=== PATIENT | male | born 1985 | race Caucasian/White ===

== ENCOUNTER 2018-04-15 17:10 | Inpatient (IN) ==
[2018-04-15 17:41] LABS: Basophils # 0.1 K/mcL (0.0-0.2); Basophils % 0.7 %; Eosinophils # 0.6 K/mcL (0.0-0.6); Eosinophils % 8.1 %; Hematocrit 37.9 % (37.5-50.1); Hemoglobin 13.3 g/dL (12.9-16.9); Immature Granulocytes % 0.1 % (0-4); Lymphocytes # 1.7 K/mcL (0.6-4.6); Lymphocytes % 24.3 %; Mean Corpuscular HGB Conc 35.1 g/dL (31.6-35.5); Mean Corpuscular Hemoglobin 29.9 pg (28.0-33.3); Mean Corpuscular Volume 85.2 fL (83.0-100.0); Monocytes # 0.5 K/mcL (0.0-1.3); Monocytes % 7.4 %; Neutrophils # 4.2 K/mcL (1.6-8.9); Platelet Count 277 K/mcL (140-400); Red Blood Count 4.45 M/mcL (4.19-5.50); Red Cell Distribution Width 12.3 % (11.5-14.5); Segmented Neutrophils % 59.4 %
[2018-04-15 18:04] LABS: Acetaminophen < 10 mcg/mL (10-20); Alanine Aminotransferase 51 Units/L (7-52); Albumin 4.5 g/dL (3.5-5.7); Albumin/Globulin Ratio 1.7 (1.1-2.2); Alkaline Phosphatase 83 Units/L (34-104); Aspartate Amino Transferase 30 Units/L (13-39); BUN/Creatinine Ratio 8 (6-26); Bilirubin,Direct 0.1 mg/dL (0.0-0.2); Bilirubin,Indirect 0.3 mg/dL (0.0-1.2); Bilirubin,Total 0.4 mg/dL (0.3-1.0); Blood Urea Nitrogen 8 mg/dL (6-20); Calcium 9.3 mg/dL (8.6-10.3); Carbon Dioxide 27 mEq/L (23-29); Chloride 104 mEq/L (98-107); Ethanol < 10 mg/dL (Less than 10); Globulin 2.7 g/dL (2.4-3.5); Glucose 112 mg/dL (70-105); Osmolality,Calculated 285 (280-300); Potassium 3.6 mEq/L (3.5-5.1); Salicylate < 2.5 mg/dL (15.0-30.0); Sodium 138 mEq/L (136-145); Total Protein 7.2 g/dL (6.4-8.9); eGFR For Non-African Americans > 60 (> 60)
[2018-04-15] MEDS ORDERED: Ziprasidone injection 20 MG/ML VIAL IM ONE (18:11)
[2018-04-15] MEDS ORDERED: *HR* LORazepam 2 MG/ML VIAL IM ONE (18:11)
[2018-04-15 18:16] LABS: Thyroid Stimulating Hormone 0.553 mcIU/mL (0.340-5.600)
[2018-04-15 18:25] LABS: Bilirubin,Urine Negative (Negative); Blood,Urine Moderate (Negative); Clarity,Urine Cloudy (Clear); Color,Urine Yellow (Yellow); Glucose,Urine (UA) Normal (Normal); Ketones,Urine Trace mg/dL (Negative); Leukocyte Esterase,Urine Small (Negative); Nitrite,Urine Negative (Negative); PH,Urine 6.5 pH Units (5.0-8.0); Protein,Urine Negative (Neg-Trace); Specific Gravity,Urine > 1.030 (1.010-1.025); Urobilinogen,Urine Normal (Normal)
[2018-04-15 18:26] LABS: Bacteria,Urine None Seen per hpf (None-Few); Squamous Epithelial Cell,Urine Many per lpf (None-Few); WBC,Urine 50-100 per hpf (0-3)
[2018-04-15 18:48] LABS: Amphetamine Screen,Urine Positive ng/mL (Cutoff=1000); Barbiturate Screen,Urine Negative ng/mL (Cutoff=200); Benzodiazepines Screen,Urine Negative ng/mL (Cutoff=200); Cannabinoid Screen,Urine Negative ng/mL (Cutoff = 50); Cocaine Screen,Urine Negative ng/mL (Cutoff= 300); Opiate Screen,Urine Negative ng/mL (Cutoff=300); Phencyclidine Screen,Urine Negative ng/mL (Cutoff=25)
--- NOTE | 2018-04-15 18:54 | Emergency Department Note ---
Disposition Clinical Impression: Acute psychosis Intoxication by drug Qualifiers: Complication of substance-induced condition: with delirium Qualified Code(s): F19.921 - Other psychoactive substance use, unspecified with intoxication with delirium Disposition: Admitted As Inpatient Condition: Fair Referrals: NONE,PCP [Primary Care Provider] - Forms: ED Satisfaction Letter Time of Disposition: 20:16 General Adult HPI - General Chief complaint: ED Psychiatric Symptoms Stated complaint: AMS Time Seen by Provider: 04/15/18 17:16 Source: patient Mode of arrival: ambulatory Limitations: altered mental status - History of Present Illness HPI Narrative: This is a 32-year-old male brought in by EMS because he was found at a discount store staring aimlessly off into space. He will not interact with EMS or with myself. Pain Scale: 4 - Related Data Allergies Allergy/AdvReac Type Severity Reaction Status Date / Time Unable to Assess Allergy Verified 04/15/18 18:22 Limitations: ROS unobtainable due to patients medical condition Past Medical History - Past Medical History Medical history: Reports: other - Social History Smoking Status: Unknown if ever smoked Physical Exam - General Limitations: other (Patient chooses not to communicate) General appearance: in no apparent distress - Head Head exam: atraumatic, normocephalic, normal inspection - Eye Eye exam: Present: normal appearance, PERRL, EOMI - Chest Chest inspection: Present: normal inspection, symmetric chest wall rise - Respiratory Respiratory exam: Present: normal lung sounds bilaterally - Cardiovascular Cardiovascular exam: Present: regular rate, normal rhythm, normal heart sounds - Abdominal Exam Abdominal exam: Present: soft, Non-Tender. Absent: tenderness, distention, guarding, rebound, rigidity - Extremities Exam Extremities exam: Present: normal inspection, full ROM. Absent: tenderness, pedal edema - Neurological Exam Neurological exam: Present: alert, CN II-XII intact. Absent: motor sensory deficit - Psychiatric Psychiatric exam: Present: normal affect, normal mood - Skin Skin exam: Present: warm, dry, intact, normal color Course Course Narrative: This is a 32-year-old male who appears to have a psychiatric problem. Vital Signs Temperature 100.2 F H 04/15/18 17:17 Pulse Rate 87 04/15/18 17:17 Respiratory Rate 18 04/15/18 17:17 Blood Pressure 163/118 04/15/18 17:17 O2 Sat by Pulse Oximetry 99 04/15/18 17:17 Temperature 98.7 F 04/15/18 18:03 Pulse Rate 107 04/15/18 19:17 Respiratory Rate 14 04/15/18 19:17 Blood Pressure 168/105 04/15/18 19:17 O2 Sat by Pulse Oximetry 98 04/15/18 19:17 Oxygen Delivery Oxygen Delivery Room Air Medical Decision Making - MDM Narrative Medical decision making narrative: This is a 32-year-old male who is either having a first episode of schizophrenia or has a drug-induced intoxication causing his behavior. He is not medically clear for psychiatric evaluation, and I discussed his case with the on-call hospitalist, who accepted him for observation. - Lab Data Lab results reviewed: Yes I reviewed the patient's lab results. Lab results narrative: CBC was unremarkable CMP was unremarkable TSH was normal UA shows white cells and red cells but no evidence of infection Drug screen was positive for amphetamines Result diagrams: 04/15/18 17:21 04/15/18 17:21 Lab Results 04/15/18 04/15/18 04/15/18 Range/Units 17:21 17:21 18:16 WBC 7.0 (4.3-11.1) K/mcL RBC 4.45 (4.19-5.50) M/mcL Hgb 13.3 (12.9-16.9) g/dL Hct 37.9 (37.5-50.1) % MCV 85.2 (83.0-100.0) fL MCH 29.9 (28.0-33.3) pg MCHC 35.1 (31.6-35.5) g/dL RDW 12.3 (11.5-14.5) % Plt Count 277 (140-400) K/mcL MPV 9.0 L (9.4-12.4) fL Immature Gran % 0.1 (0-4) % Seg Neutrophils % 59.4 % Lymphocytes % 24.3 % Monocytes % 7.4 % Eosinophils % 8.1 % Basophils % 0.7 % Neutrophils # 4.2 (1.6-8.9) K/mcL Lymphocytes # 1.7 (0.6-4.6) K/mcL Monocytes # 0.5 (0.0-1.3) K/mcL Eosinophils # 0.6 (0.0-0.6) K/mcL Basophils # 0.1 (0.0-0.2) K/mcL Sodium 138 (136-145) mEq/L Potassium 3.6 (3.5-5.1) mEq/L Chloride 104 (98-107) mEq/L Carbon Dioxide 27 (23-29) mEq/L BUN 8 (6-20) mg/dL Creatinine 0.99 (0.70-1.30) mg/dL Est GFR ( Amer) > 60 (> 60) Est GFR (Non-Af Amer) > 60 (> 60) BUN/Creatinine Ratio 8 (6-26) Glucose 112 H (70-105) mg/dL Calculated Osmolality 285 (280-300) Calcium 9.3 (8.6-10.3) mg/dL Total Bilirubin 0.4 (0.3-1.0) mg/dL Direct Bilirubin 0.1 (0.0-0.2) mg/dL Indirect Bilirubin 0.3 (0.0-1.2) mg/dL AST 30 (13-39) Units/L ALT 51 (7-52) Units/L Alkaline Phosphatase 83 (34-104) Units/L Serum Total Protein 7.2 (6.4-8.9) g/dL Albumin 4.5 (3.5-5.7) g/dL Globulin 2.7 (2.4-3.5) g/dL Albumin/Globulin Ratio 1.7 (1.1-2.2) TSH 0.553 (0.340-5.600) mcIU/mL Urine Color Yellow (Yellow) Urine Clarity Cloudy A (Clear) Urine pH 6.5 (5.0-8.0) pH Units Ur Specific [place] > 1.030 H (1.010-1.025) Urine Protein Negative (Neg-Trace) mg/dL Urine Glucose (UA) Normal (Normal) mg/dL Urine Ketones Trace H (Negative) mg/dL Urine Blood Moderate H (Negative) Urine Nitrite Negative (Negative) Urine Bilirubin Negative (Negative) Urine Urobilinogen Normal (Normal) mg/dL Ur Leukocyte Esterase Small H (Negative) Urine Microscopic RBC 5-15 H (0-3) per hpf Urine Microscopic WBC 50-100 H (0-3) per hpf Ur Squamous Epith Cells Many H (None-Few) per lpf Urine Bacteria None Seen (None-Few) per hpf Salicylates < 2.5 L (15.0-30.0) mg/dL Urine Opiates Screen (Mxutqe=247) ng/mL Acetaminophen < 10 L (10-20) mcg/mL Ur Barbiturates Screen (Oplhop=970) ng/mL Ur Phencyclidine Scrn (Cutoff=25) ng/mL Ur Amphetamines Screen (Gmgzbc=5819) ng/mL U Benzodiazepines Scrn (Hnlzvu=063) ng/mL Urine Cocaine Screen (Cutoff= 300) ng/mL U Marijuana (THC) Screen (Cutoff = 50) ng/mL Ur Drug Screen Interp Ethyl Alcohol < 10 (Less than 10) mg/dL 04/15/18 Range/Units 18:16 WBC (4.3-11.1) K/mcL RBC (4.19-5.50) M/mcL Hgb (12.9-16.9) g/dL Hct (37.5-50.1) % MCV (83.0-100.0) fL MCH (28.0-33.3) pg MCHC (31.6-35.5) g/dL RDW (11.5-14.5) % Plt Count (140-400) K/mcL MPV (9.4-12.4) fL Immature Gran % (0-4) % Seg Neutrophils % % Lymphocytes % % Monocytes % % Eosinophils % % Basophils % % Neutrophils # (1.6-8.9) K/mcL Lymphocytes # (0.6-4.6) K/mcL Monocytes # (0.0-1.3) K/mcL Eosinophils # (0.0-0.6) K/mcL Basophils # (0.0-0.2) K/mcL Sodium (136-145) mEq/L Potassium (3.5-5.1) mEq/L Chloride (98-107) mEq/L Carbon Dioxide (23-29) mEq/L BUN (6-20) mg/dL Creatinine (0.70-1.30) mg/dL Est GFR ( Amer) (> 60) Est GFR (Non-Af Amer) (> 60) BUN/Creatinine Ratio (6-26) Glucose (70-105) mg/dL Calculated Osmolality (280-300) Calcium (8.6-10.3) mg/dL Total Bilirubin (0.3-1.0) mg/dL Direct Bilirubin (0.0-0.2) mg/dL Indirect Bilirubin (0.0-1.2) mg/dL AST (13-39) Units/L ALT (7-52) Units/L Alkaline Phosphatase (34-104) Units/L Serum Total Protein (6.4-8.9) g/dL Albumin (3.5-5.7) g/dL Globulin (2.4-3.5) g/dL Albumin/Globulin Ratio (1.1-2.2) TSH (0.340-5.600) mcIU/mL Urine Color (Yellow) Urine Clarity (Clear) Urine pH (5.0-8.0) pH Units Ur Specific [place] (1.010-1.025) Urine Protein (Neg-Trace) mg/dL Urine Glucose (UA) (Normal) mg/dL Urine Ketones (Negative) mg/dL Urine Blood (Negative) Urine Nitrite (Negative) Urine Bilirubin (Negative) Urine Urobilinogen (Normal) mg/dL Ur Leukocyte Esterase (Negative) Urine Microscopic RBC (0-3) per hpf Urine Microscopic WBC (0-3) per hpf Ur Squamous Epith Cells (None-Few) per lpf Urine Bacteria (None-Few) per hpf Salicylates (15.0-30.0) mg/dL Urine Opiates Screen Negative (Bqtvcb=463) ng/mL Acetaminophen (10-20) mcg/mL Ur Barbiturates Screen Negative (Tcjuub=621) ng/mL Ur Phencyclidine Scrn Negative (Cutoff=25) ng/mL Ur Amphetamines Screen Positive H (Xzrhsx=3911) ng/mL U Benzodiazepines Scrn Negative (Iafxwx=055) ng/mL Urine Cocaine Screen Negative (Cutoff= 300) ng/mL U Marijuana (THC) Screen Negative (Cutoff = 50) ng/mL Ur Drug Screen Interp See Below Ethyl Alcohol (Less than 10) mg/dL - Radiology Data Radiology results reviewed: Yes I reviewed the patient's radiology results. CT brain showed no acute abnormality Critical Care Time Critical Care Time: No
[2018-04-15] MEDS ORDERED: Ringers Solution, Lactated 1,000 ML IVC SCH (20:30)
--- NOTE | 2018-04-15 22:14 | Internal Med History&Physical ---
Date of Encounter: 04/15/18 Time of Encounter: 22:12 Internal Medicine - H&P: HPI Chief complaint: AMS Admitted From: Home Plans for Post Hospital Care: Home History of present illness: Joey Cortes is a 32-year-old male done unknown past medical history was brought in by EMS because he was found that a discount store staring aimlessly off into space and did not interact with EMS or with ER staff therefore information is obtained from chart review. It is believed he may be having a psychotic disorder. His labs are grossly unremarkable and head CT non-revealing however his UDS was revealing of amphetamines therefore he was not cleared medically. He will be observed overnight and obtain psychiatric evaluation in the morning. On my assessment he is lying in bed with his eyes closed and does not respond though his eyes flicker when spoken to and when touched. In traction was elicited when the pain nurse attempted to put in a Mac catheter at which time he grabbed his genitals and said no and cooperated with obtaining urine for sampling. Past Med Surg Social Fam HX - Past Medical History Medical history: other Additional medical history: Patient not responding - Social History Smoking Status: Unknown if ever smoked Internal Medicine - H&P: Meds Allergy/AdvReac Type Severity Reaction Status Date / Time Unable to Assess Allergy Verified 04/15/18 18:22 All Systems PM: A 10-system review of systems was performed and is negative for pertinent findings except as documented above in the HPI. Family history unable to be obtained due to non-cooperative state. - Constitutional Vitals: Temp Pulse Resp BP Pulse Ox 98.9 F 112 6 162/110 97 04/15/18 21:10 04/15/18 21:51 04/15/18 21:51 04/15/18 21:10 04/15/18 22:02 Exam: Vitals: Reviewed General: Well developed white male lying comfortably in bed in no acute distress. Skin: Warm and supple. HEENT: Moist mucous membranes. No conjunctivae pallor. Neck: No lymphadenopathy. No JVD. No carotid bruits. No palpable thyroid. Chest: Normal thoracic expansion. Normal breath sounds. Clear to auscultation. Heart: Normal S1 & S2; rhythmic. No rubs or murmurs. Abdomen: Non-distended, soft and non-tender to palpation. No peritoneal reaction. Extremities: No clubbing, cyanosis or edema. No calf tenderness. Normal distal pulses. Neurological: Unable to assess. Psych: Unable to assess. Internal Med - H&P Results - Labs CBC & Chem 7: 04/15/18 17:21 04/15/18 17:21 Labs: Short CBC 04/15/18 Range/Units 17:21 WBC 7.0 (4.3-11.1) K/mcL Hgb 13.3 (12.9-16.9) g/dL Hct 37.9 (37.5-50.1) % Plt Count 277 (140-400) K/mcL Neutrophils # 4.2 (1.6-8.9) K/mcL BMP 04/15/18 17:21 Sodium 138 Potassium 3.6 Chloride 104 Carbon Dioxide 27 BUN 8 Creatinine 0.99 Glucose 112 H Calcium 9.3 Liver Function 04/15/18 Range/Units 17:21 Total Bilirubin 0.4 (0.3-1.0) mg/dL Direct Bilirubin 0.1 (0.0-0.2) mg/dL AST 30 (13-39) Units/L ALT 51 (7-52) Units/L Alkaline Phosphatase 83 (34-104) Units/L Albumin 4.5 (3.5-5.7) g/dL Urine 04/15/18 Range/Units 18:16 Urine Color Yellow (Yellow) Urine Clarity Cloudy A (Clear) Urine pH 6.5 (5.0-8.0) pH Units Ur Specific [place] > 1.030 H (1.010-1.025) Urine Protein Negative (Neg-Trace) mg/dL Urine Glucose (UA) Normal (Normal) mg/dL - Impressions ITS Impressions Head CT 04/15/18 17:21 IMPRESSION: Limited exam due to motion. Multifocal low-density in the right hemisphere. Motion related artifact is favored over ischemic changes No acute abnormality otherwise D/ / Igor Vogt / Igor Vogt Interpreting Provider: Igor Vogt - Assessment and plan (1) Acute encephalopathy Current Visit: Yes Status: Acute Assessment and plan: Non-verbal. Appears psychiatric in etiology. No known history and patient not cooperating, seemingly intentionally. Head CT and labs unremarkable. Will observe overnight and consult psych in the morning once cleared. (2) Intoxication by drug Current Visit: Yes Status: Acute Assessment and plan: Amphetamines seen in urine. Currently not in a hyperactive state. Will give fluids overnight and close observation. 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 Qualifiers: Complication of substance-induced condition: with unspecified complication Qualified Code(s): F19.929 - Other psychoactive substance use, unspecified with intoxication, unspecified (3) DVT prophylaxis Current Visit: Yes Status: Acute Assessment and plan: Heparin SubQ. - Time Spent With Patient Total time spent is greater than 50% in coordination of care (as documented) at patient's floor/unit and/or counseling patient: Greater than 35 minutes
[2018-04-16] MEDS: *HR* Heparin 5,000 UNIT/ML VIAL SQ SCH ×2 (06:03→16:19)
--- NOTE | 2018-04-16 09:00 | Internal Med Progress Note ---
<Ashlie Narayanan - Last Filed: 04/16/18 08:57> Hospitalist Progress Note - Encounter Date of Encounter: 04/16/18 Time of Encounter: 08:57 - Subjective Interval History: Patient does not answer questions, although eyes flutter behind eyelids during exam. He did open his eyes squinting to look in to the hallway before closing them again. Also opened and closed mouth, but did not speak. - Exam Vitals: Temp Pulse Resp BP Pulse Ox 98.6 F 101 13 168/109 98 04/16/18 07:37 04/16/18 07:37 04/16/18 07:37 04/16/18 07:37 04/16/18 07:37 Exam: General: alert, no acute distress HEENT: atraumatic, normocephalic, external ears normal, PEERLA EOMI, neck supple, trachea midline Heart: RRR Lungs: CTA Abdomen: soft, nontender, bowel sounds present Extremities: no edema Vascular: posterior tibial pulses 2/4 and equal Skin: warm, dry, intact Neuro: does not answer commands/questions. Did open eyes and look in to morse and open and close mouth. Musculoskeletal: Moving upper extremities spontaneously. Psych: not cooperating with questioning - Assessment and Plan (1) Acute psychosis Current Visit: Yes Status: Acute Assessment and Plan: Patient was brought in by EMS after being found at a discount score staring in to space. He has not responded to any medical profession (EMS, ER physician, admitting hospitalist, myself) He did withdraw from pain and respond when a nurse attempted to place a Mac catheter, grabbing his genitals and saying "no." He then cooperated with obtaining urine sample. This morning he is unresponsive to my commands/questions but is moving his upper extremities, opening/closing mouth, and opening his eyes and looked into the hallway for a moment. Psych consulted (2) Positive urine drug screen Current Visit: Yes Status: Acute Assessment and Plan: UDS positive for amphetamines patient is currently hypoactive, not hyperactive DVT Prophylaxis: heparin SQ - Time Spent with Patient Total time spent is greater than 50% in coordination of care (as documented) at patient's floor/unit and/or counseling patient: Internal Medicine: Result - Labs CBC & Chem 7: 04/15/18 17:21 04/15/18 17:21 Labs: Short CBC 04/15/18 Range/Units 17:21 WBC 7.0 (4.3-11.1) K/mcL Hgb 13.3 (12.9-16.9) g/dL Hct 37.9 (37.5-50.1) % Plt Count 277 (140-400) K/mcL Neutrophils # 4.2 (1.6-8.9) K/mcL BMP 04/15/18 17:21 Sodium 138 Potassium 3.6 Chloride 104 Carbon Dioxide 27 BUN 8 Creatinine 0.99 Glucose 112 H Calcium 9.3 Liver Function 04/15/18 Range/Units 17:21 Total Bilirubin 0.4 (0.3-1.0) mg/dL Direct Bilirubin 0.1 (0.0-0.2) mg/dL AST 30 (13-39) Units/L ALT 51 (7-52) Units/L Alkaline Phosphatase 83 (34-104) Units/L Albumin 4.5 (3.5-5.7) g/dL Urine 04/15/18 Range/Units 18:16 Urine Color Yellow (Yellow) Urine Clarity Cloudy A (Clear) Urine pH 6.5 (5.0-8.0) pH Units Ur Specific [place] > 1.030 H (1.010-1.025) Urine Protein Negative (Neg-Trace) mg/dL Urine Glucose (UA) Normal (Normal) mg/dL - Impressions Impressions Head CT 04/15/18 17:21 IMPRESSION: Limited exam due to motion. Multifocal low-density in the right hemisphere. Motion related artifact is favored over ischemic changes No acute abnormality otherwise D/ / Igor oVgt / Igor Vogt Interpreting Provider: Igor Vogt Consult Discharge Plan - Plan Referrals: NONE,PCP [Primary Care Provider] - <Bijan Hartman - Last Filed: 04/16/18 12:17> Hospitalist Progress Note - Encounter Date of Encounter: 04/16/18 - Exam Vitals: Temp Pulse Resp BP Pulse Ox 99.3 F 105 16 157/106 100 04/16/18 11:45 04/16/18 11:45 04/16/18 11:45 04/16/18 11:45 04/16/18 11:45 - Assessment and Plan (1) Intoxication by drug Current Visit: Yes Status: Acute (2) Acute encephalopathy Current Visit: Yes Status: Acute (3) DVT prophylaxis Current Visit: Yes Status: Acute - Time Spent with Patient Total time spent is greater than 50% in coordination of care (as documented) at patient's floor/unit and/or counseling patient: Internal Medicine: Result - Labs CBC & Chem 7: 04/15/18 17:21 04/15/18 17:21 Labs: Short CBC 04/15/18 Range/Units 17:21 WBC 7.0 (4.3-11.1) K/mcL Hgb 13.3 (12.9-16.9) g/dL Hct 37.9 (37.5-50.1) % Plt Count 277 (140-400) K/mcL Neutrophils # 4.2 (1.6-8.9) K/mcL BMP 04/15/18 17:21 Sodium 138 Potassium 3.6 Chloride 104 Carbon Dioxide 27 BUN 8 Creatinine 0.99 Glucose 112 H Calcium 9.3 Liver Function 04/15/18 Range/Units 17:21 Total Bilirubin 0.4 (0.3-1.0) mg/dL Direct Bilirubin 0.1 (0.0-0.2) mg/dL AST 30 (13-39) Units/L ALT 51 (7-52) Units/L Alkaline Phosphatase 83 (34-104) Units/L Albumin 4.5 (3.5-5.7) g/dL Urine 04/15/18 Range/Units 18:16 Urine Color Yellow (Yellow) Urine Clarity Cloudy A (Clear) Urine pH 6.5 (5.0-8.0) pH Units Ur Specific [place] > 1.030 H (1.010-1.025) Urine Protein Negative (Neg-Trace) mg/dL Urine Glucose (UA) Normal (Normal) mg/dL - Impressions Impressions Head CT 04/15/18 17:21 IMPRESSION: Limited exam due to motion. Multifocal low-density in the right hemisphere. Motion related artifact is favored over ischemic changes No acute abnormality otherwise D/ / Igor Vogt / Igor Vogt Interpreting Provider: Igor Vogt - Attending Attestation I examined this patient and my medical decision-making was reviewed with the Resident Physician Dr. Narayanan. I agree with the documented findings, disposition and treatment plan as described except to the extent set forth below. Mr. Cortes is a 32 y/o M with unknown psychiatric history who was brought in to ER by EMS after he was found staring into space at a local convenience store. In the emergency room his labs are grossly unremarkable and head CT non- revealing. His UDS showed amphetamines. Patient is still having flat affect, not communicating verbally and unable to give any history. Gen: Flat effect, Delusions Chest: CTAB Heart: S1S2+ RRR No murmurs a/p 1. Acute psychosis 2. Underline psychiatric disease - possible schizophrenia 3. Substance abuse cont on tele continue close monitoring appreciate psychiatric recommendations placed him on Haldol 5 mg oral Q6hr PRN <Bijan Hartman - Last Filed: 04/16/18 12:17> (1) Intoxication by drug Qualifiers: Complication of substance-induced condition: with unspecified complication Qualified Code(s): F19.929 - Other psychoactive substance use, unspecified with intoxication, unspecified
--- NOTE | 2018-04-16 10:41 | Consult Note ---
Date of Encounter: 04/16/18 Time of Encounter: 10:36 Assessment & Recommendation (1) Substance-induced psychotic disorder Current visit: Yes Status: Acute Assessment & Recommendation: Suspect presentation is due to methamphetamine induced psychosis but cannot say for sure with client refusing to cooperate and no medical history available. Recommend giving low dose Haldol to see if it helps him clear. Can give 5mg IV q6-8hr prn if he refuses PO but would keep him on telemetry when doing so. Can use Benadryl or Cogentin if he has any dystonia or other signs of EPS from the Haldol. Any collateral information from family/old medical records would be helpful until he can more meaningfully participate in an assessment. History of Present Illness Requesting Physician: Sidra Tavera MD Reason for consult: altered mental status History of present illness: Mr. Cortes is a 32 year old male who was brought in by EMS after he was found staring vacantly at a store. Since being admitted he has not cooperated with any assessments. He has withdrawn to pain but has not otherwise answered questions or engaged with staff. On eval today he is laying in bed with his eyes closed. Never opened his eyes when this plunger shovel operator was in the room and did not answer any questions. However, he did not appear to be asleep. Seemed to be deliberately not engaging. Female patient across the morse motioned this play writer over and stated client had recently been awake and screaming. Claims he was yelling nonsense and praying loudly just before this play writer came up. Tox screen positive for meth. Mental health history is unknown. No real information on client at this time. CC: Sidra Tavera MD Past Med Surg Social Fam HX - Past Medical History Medical history: other - Past Psychiatric History Psychiatric history: Reports: other Family psychiatric history: Unknown Family History of Suicide: Unknown - Social History Smoking Status: Unknown if ever smoked Medications & Allergies Buprenorphine HCl/Naloxone HCl [Suboxone 8 mg-2 mg Sl Film] 1 each SL BID 04/16/18 [History] Gabapentin [Neurontin] 600 mg PO TID 04/16/18 [History] Allergy/AdvReac Type Severity Reaction Status Date / Time Unable to Assess Allergy Verified 04/15/18 18:22 Review of Systems Constitutional: Denies: fever, chills, weakness, weight change Eyes: Denies: eye pain, vision change Ears, Nose, Throat: Denies: ear pain, throat pain, dental pain, hearing loss, congestion Cardiovascular: Denies: chest pain, palpitations, dyspnea on exertion Respiratory: Denies: cough, dyspnea, wheezes Gastrointestinal: Denies: abdominal pain, nausea, vomiting, diarrhea, constipation Genitourinary male: Denies: urgency, dysuria, frequency, genital lesions Musculoskeletal: Denies: joint swelling, joint pain Integumentary: Denies: rash, lesions, pruritus Neurological: Denies: headache, weakness, numbness, memory loss Endocrine: Denies: fatigue, heat or cold intolerance Hematologic/Lymphatic: Denies: easy bruising, lymphadenopathy Allergic/Immunologic: Denies: urticaria, itchy eyes Psychiatry Exam - Constitutional Vitals: Temp Pulse Resp BP Pulse Ox 98.6 F 101 13 168/109 98 04/16/18 07:37 04/16/18 07:37 04/16/18 07:37 04/16/18 07:37 04/16/18 07:37 General appearance: age & developmentally appropriate - Musculoskeletal Gait: other Station: relaxed Strength & Tone: other - Psychiatric Patient Orientation: Yes Other Level of alertness: Responds to painful stimuli Behavior: uncooperative Psychomotor activity: Slowed Eye Contact: No Eye Contact Mood Description: Other Affect description: blunted Speech Volume: No speech Speech pattern: other Language & Vocabulary: other Patient Reliability: Not Reliable Historian Judgment: Poor Insight: None Results - Drug Levels and Toxicology Drug Levels and Toxicology: Drug Levels and Toxicity 04/15/18 04/15/18 17:21 18:16 Urine Opiates Screen Negative Acetaminophen < 10 L Ur Barbiturates Screen Negative Ur Phencyclidine Scrn Negative Ur Amphetamines Screen Positive H U Benzodiazepines Scrn Negative Urine Cocaine Screen Negative U Marijuana (THC) Screen Negative Ethyl Alcohol < 10 - Labs Labs: Laboratory Last Values WBC 7.0 K/mcL (4.3-11.1) 04/15/18 17:21 RBC 4.45 M/mcL (4.19-5.50) 04/15/18 17:21 Hgb 13.3 g/dL (12.9-16.9) 04/15/18 17:21 Hct 37.9 % (37.5-50.1) 04/15/18 17:21 MCV 85.2 fL (83.0-100.0) 04/15/18 17:21 MCH 29.9 pg (28.0-33.3) 04/15/18 17:21 MCHC 35.1 g/dL (31.6-35.5) 04/15/18 17:21 RDW 12.3 % (11.5-14.5) 04/15/18 17:21 Plt Count 277 K/mcL (140-400) 04/15/18 17:21 MPV 9.0 fL (9.4-12.4) L 04/15/18 17:21 Immature Gran % 0.1 % (0-4) 04/15/18 17:21 Seg Neutrophils % 59.4 % 04/15/18 17:21 Lymphocytes % 24.3 % 04/15/18 17:21 Monocytes % 7.4 % 04/15/18 17:21 Eosinophils % 8.1 % 04/15/18 17:21 Basophils % 0.7 % 04/15/18 17:21 Neutrophils # 4.2 K/mcL (1.6-8.9) 04/15/18 17:21 Lymphocytes # 1.7 K/mcL (0.6-4.6) 04/15/18 17:21 Monocytes # 0.5 K/mcL (0.0-1.3) 04/15/18 17:21 Eosinophils # 0.6 K/mcL (0.0-0.6) 04/15/18 17:21 Basophils # 0.1 K/mcL (0.0-0.2) 04/15/18 17:21 Sodium 138 mEq/L (136-145) 04/15/18 17:21 Potassium 3.6 mEq/L (3.5-5.1) 04/15/18 17:21 Chloride 104 mEq/L (98-107) 04/15/18 17:21 Carbon Dioxide 27 mEq/L (23-29) 04/15/18 17:21 BUN 8 mg/dL (6-20) 04/15/18 17:21 Creatinine 0.99 mg/dL (0.70-1.30) 04/15/18 17:21 Est GFR ( Amer) > 60 (> 60) 04/15/18 17:21 Est GFR (Non-Af Amer) > 60 (> 60) 04/15/18 17:21 BUN/Creatinine Ratio 8 (6-26) 04/15/18 17:21 Glucose 112 mg/dL (70-105) H 04/15/18 17:21 Calculated Osmolality 285 (280-300) 04/15/18 17:21 Calcium 9.3 mg/dL (8.6-10.3) 04/15/18 17:21 Total Bilirubin 0.4 mg/dL (0.3-1.0) 04/15/18 17:21 Direct Bilirubin 0.1 mg/dL (0.0-0.2) 04/15/18 17:21 Indirect Bilirubin 0.3 mg/dL (0.0-1.2) 04/15/18 17:21 AST 30 Units/L (13-39) 04/15/18 17:21 ALT 51 Units/L (7-52) 04/15/18 17:21 Alkaline Phosphatase 83 Units/L (34-104) 04/15/18 17:21 Serum Total Protein 7.2 g/dL (6.4-8.9) 04/15/18 17:21 Albumin 4.5 g/dL (3.5-5.7) 04/15/18 17:21 Globulin 2.7 g/dL (2.4-3.5) 04/15/18 17:21 Albumin/Globulin Ratio 1.7 (1.1-2.2) 04/15/18 17:21 TSH 0.553 mcIU/mL (0.340-5.600) 04/15/18 17:21 Urine Color Yellow (Yellow) 04/15/18 18:16 Urine Clarity Cloudy (Clear) A 04/15/18 18:16 Urine pH 6.5 pH Units (5.0-8.0) 04/15/18 18:16 Ur Specific [place] > 1.030 (1.010-1.025) H 04/15/18 18:16 Urine Protein Negative mg/dL (Neg-Trace) 04/15/18 18:16 Urine Glucose (UA) Normal mg/dL (Normal) 04/15/18 18:16 Urine Ketones Trace mg/dL (Negative) H 04/15/18 18:16 Urine Blood Moderate (Negative) H 04/15/18 18:16 Urine Nitrite Negative (Negative) 04/15/18 18:16 Urine Bilirubin Negative (Negative) 04/15/18 18:16 Urine Urobilinogen Normal mg/dL (Normal) 04/15/18 18:16 Ur Leukocyte Esterase Small (Negative) H 04/15/18 18:16 Urine Microscopic RBC 5-15 per hpf (0-3) H 04/15/18 18:16 Urine Microscopic WBC 50-100 per hpf (0-3) H 04/15/18 18:16 Ur Squamous Epith Cells Many per lpf (None-Few) H 04/15/18 18:16 Urine Bacteria None Seen per hpf (None-Few) 04/15/18 18:16 Salicylates < 2.5 mg/dL (15.0-30.0) L 04/15/18 17:21 Urine Opiates Screen Negative ng/mL (Fublub=820) 04/15/18 18:16 Acetaminophen < 10 mcg/mL (10-20) L 04/15/18 17:21 Ur Barbiturates Screen Negative ng/mL (Qmsatw=600) 04/15/18 18:16 Ur Phencyclidine Scrn Negative ng/mL (Cutoff=25) 04/15/18 18:16 Ur Amphetamines Screen Positive ng/mL (Lmdasq=4660) H 04/15/18 18:16 U Benzodiazepines Scrn Negative ng/mL (Yupoht=330) 04/15/18 18:16 Urine Cocaine Screen Negative ng/mL (Cutoff= 300) 04/15/18 18:16 U Marijuana (THC) Screen Negative ng/mL (Cutoff = 50) 04/15/18 18:16 Ur Drug Screen Interp See Below 04/15/18 18:16 Ethyl Alcohol < 10 mg/dL (Less than 10) 04/15/18 17:21 - Impressions Impressions Head CT 04/15/18 17:21 IMPRESSION: Limited exam due to motion. Multifocal low-density in the right hemisphere. Motion related artifact is favored over ischemic changes No acute abnormality otherwise D/ / Igor Vogt / Igor Vogt Interpreting Provider: Igor Vogt Consult Discharge Plan - Plan Referrals: NONE,PCP [Primary Care Provider] -
[2018-04-16] MEDS: Gabapentin 300 MG CAPSULE PO SCH ×2 (16:17→21:25)
[2018-04-16] MEDS: (Buprenorphine Hcl/Naloxone Hcl [Suboxone 8 Mg-2 Mg S SL SCH (21:25)
[2018-04-17] MEDS: *HR* Heparin 5,000 UNIT/ML VIAL SQ SCH ×2 (07:17→17:31)
--- NOTE | 2018-04-17 08:11 | Internal Med Progress Note ---
<Ashlie Narayanan - Last Filed: 04/17/18 08:23> Hospitalist Progress Note - Encounter Date of Encounter: 04/17/18 Time of Encounter: 08:11 - Subjective Interval History: States he hurts all over, this is not new pain, but chronic. He did not know why he is currently in the hospital. He would like his son, mother, and father to be called - he said that he could write down their names and phone numbers so we can contact them. He did not answer the following questions: -Do you have any chronic medical conditions? -Do you take any medicine taily? -Any ROS questions asked other than stated above - Exam Vitals: Temp Pulse Resp BP Pulse Ox 98.1 F 84 14 129/86 99 04/17/18 03:41 04/17/18 03:41 04/17/18 03:41 04/17/18 03:41 04/17/18 03:41 Exam: General: alert, no acute distress HEENT: atraumatic, normocephalic, external ears normal, neck supple, trachea midline Heart: RRR Lungs: CTA Abdomen: soft, nontender, bowel sounds present Extremities: no edema Vascular: posterior tibial pulses 2/4 and equal Skin: warm, dry, intact Neuro: Opens eyes and squints when light is turned on, then closes eyes and turned away from light. Musculoskeletal: Moving upper extremities spontaneously. Psych: slowed psychomotor activity, speech present to (most) questions asked, but delayed - Assessment and Plan (1) Acute psychosis Current Visit: Yes Status: Acute Assessment and Plan: Joey opened his eyes and squinted when the light was turned on, then turned his head and had his eyes closed for the remainder of the encounter. He is answering questions today, but his response is very delayed. Psychiatry consulted, appreciate input. --Recommendations for haldol po; if given IV he will need continous telemetry. He has not had any doses of haldol due to 1) will not take po medication and 2) not cooperative with keeping telemetry on. Mental status is improving giving more weight to the hypothesis that this is drug intoxication induced (2) Positive urine drug screen Current Visit: Yes Status: Acute Assessment and Plan: UDS positive for amphetamines in ER - Time Spent with Patient Total time spent is greater than 50% in coordination of care (as documented) at patient's floor/unit and/or counseling patient: Internal Medicine: Result - Labs CBC & Chem 7: 04/15/18 17:21 04/15/18 17:21 Consult Discharge Plan - Plan Referrals: NONE,PCP [Primary Care Provider] - <Bijan Hartman - Last Filed: 04/17/18 11:02> Hospitalist Progress Note - Encounter Date of Encounter: 04/17/18 - Exam Vitals: Temp Pulse Resp BP Pulse Ox 98.1 F 84 14 129/86 99 04/17/18 03:41 04/17/18 03:41 04/17/18 03:41 04/17/18 03:41 04/17/18 03:41 - Assessment and Plan (1) Intoxication by drug Current Visit: Yes Status: Acute (2) Acute encephalopathy Current Visit: Yes Status: Acute (3) DVT prophylaxis Current Visit: Yes Status: Acute - Time Spent with Patient Total time spent is greater than 50% in coordination of care (as documented) at patient's floor/unit and/or counseling patient: Internal Medicine: Result - Labs CBC & Chem 7: 04/15/18 17:21 04/15/18 17:21 - Attending Attestation I examined this patient and my medical decision-making was reviewed with the Res ident Physician Dr. Narayanan. I agree with the documented findings, disposition and treatment plan as described except to the extent set forth below. Mr. Cortes is a 32 y/o M with unknown psychiatric history who was brought in to ER by EMS after he was found staring into space at a local convenience store. In the emergency room his labs are grossly unremarkable and head CT non- revealing. His UDS showed amphetamines. Patient is still having flat affect, h owever able to communicate verbally little better today. He is ambulating in the room well. Gen: Flat effect, Delusions Chest: CTAB Heart: S1S2+ RRR No murmurs a/p 1. Acute psychosis 2. Underline psychiatric disease - possible schizophrenia 3. Substance abuse cont on tele continue close monitoring appreciate psychiatric recommendations Cont on Haldol 5 mg oral Q6hr PRN Will talk to Psychiatrist about further plan of care since pt is medically stable to d/c <Bijan Hartman - Last Filed: 04/17/18 11:02> (1) Intoxication by drug Qualifiers: Complication of substance-induced condition: with unspecified complication Qualified Code(s): F19.929 - Other psychoactive substance use, unspecified with intoxication, unspecified
[2018-04-17] MEDS: Gabapentin 300 MG CAPSULE PO SCH ×3 (08:52→20:18)
[2018-04-17] MEDS: (Buprenorphine Hcl/Naloxone Hcl [Suboxone 8 Mg-2 Mg S SL SCH ×2 (08:52→20:18)
[2018-04-18] MEDS ORDERED: Ondansetron ODT 4 MG TAB.RAPDIS SL ONE (00:22)
[2018-04-18] MEDS: *HR* Heparin 5,000 UNIT/ML VIAL SQ SCH ×2 (06:12→18:49)
[2018-04-18] MEDS: Gabapentin 300 MG CAPSULE PO SCH ×3 (10:12→21:00)
[2018-04-18] MEDS: (Buprenorphine Hcl/Naloxone Hcl [Suboxone 8 Mg-2 Mg S SL SCH ×2 (10:13→21:00)
--- NOTE | 2018-04-18 13:46 | Internal Med Progress Note ---
Hospitalist Progress Note - Encounter Date of Encounter: 04/18/18 Time of Encounter: 13:43 - Subjective Interval History: Mr. Cortes is a 32 y/o M with unknown psychiatric history who was brought in to ER by EMS after he was found staring into space at a local convenience store. In the emergency room his labs are grossly unremarkable and head CT non- revealing. His UDS showed amphetamines. Patient is still having flat affect, however able to communicate verbally little better today. He is ambulating in the room well. - Exam Vitals: Temp Pulse Resp BP Pulse Ox 97.6 F 101 16 133/89 99 04/18/18 04:01 04/18/18 04:01 04/18/18 04:01 04/18/18 04:01 04/18/18 04:01 Exam: Gen: Alert, awake, Oriented to time,place and person Chest: Diminished breath sounds B/L, No wheezing, No crackles, No rales Heart: S1S2+ RRR No murmurs Abd: Soft, NT, BS +, No organomegaly Ext: No edema, pulses are palpable, No calf tenderness Psych: Flat affect, Delusions + Skin: No rash. - Assessment and Plan (1) Acute psychosis Current Visit: Yes Status: Acute Assessment and Plan: concerning for underline psychiatric problem - possible schizophrenia Medically doing better Waiting for psychiatric evaluation. (2) Intoxication by drug Current Visit: Yes Status: Acute Assessment and Plan: Amphetamines seen in urine. Currently not in a hyperactive state Resolved Medically stable to transfer to 1 A / In patient psych service as per psych recommendations waiting on Psych eval today (3) Acute encephalopathy Current Visit: Yes Status: Acute Assessment and Plan: Multi factorial both toxic encephalopathy as well as behavioral induced psychosis Improving cont Haldol PRN (4) DVT prophylaxis Current Visit: Yes Status: Acute Assessment and Plan: Heparin SubQ. - Time Spent with Patient Total time spent is greater than 50% in coordination of care (as documented) at patient's floor/unit and/or counseling patient: Internal Medicine: Result - Labs CBC & Chem 7: 04/15/18 17:21 04/15/18 17:21 Consult Discharge Plan - Plan Referrals: NONE,PCP [Primary Care Provider] - (2) Intoxication by drug Qualifiers: Complication of substance-induced condition: with unspecified complication Qualified Code(s): F19.929 - Other psychoactive substance use, unspecified with intoxication, unspecified
[2018-04-18] MEDS ORDERED: Haloperidol Lactate 5 MG/ML VIAL IVP PRN (13:49)
--- NOTE | 2018-04-18 15:05 | Consult Note ---
Date of Encounter: 04/18/18 Time of Encounter: 14:15 Assessment & Recommendation (1) Catatonia Current visit: Yes Status: Acute (2) Acute psychosis Current visit: Yes Status: Acute (3) Methamphetamine substance use disorder, mild, in sustained remission, in controlled environment, abuse Current visit: Yes Status: Acute (4) Substance-induced psychotic disorder Current visit: Yes Status: Acute History of Present Illness Patient: new to practice Requesting Physician: Bijan Hartman MD History of present illness: Mr. Cortes is a 32 year old,, male, who presents for Catatonia. Pt was brought in by EMS after he was found staring vacantly at a store. Since being admitted he has not cooperated with any assessments. Pt presented with waxy catatonia. pt does not respond to pain and has not otherwise answered questions or engaged with staff. On eval today he is laying in bed with his eyes open. Pt did not respond to questions Question if pt is deliberately not engaging. Pt has had a few documented out bursts of yelling nonsense and praying loudly just before this headline writer came up. Tox screen positive for meth. Mental health history is unknown. No real information on client at this time. No TD noted, AIMS=0 1.Interval hx 2.Continue current medications 3.Review current labs 4.Pt had an opportunity to ask questions and discuss current treatment plan. 5.Supportive therapy was provided 6.Pt encouraged to consider group or individual therapy 7.Pt was in agreement with treatment plan. 8.Pt was educated on the risks benefits and side effects of current medications. 9.Start Ativan 1 mg IM TID for catationia, with plan to increase to 2 mg TID if responsive. CC: Bijan Hartman MD Past Med Surg Social Fam HX - Past Medical History Medical history: other - Past Psychiatric History Psychiatric history: Reports: other Past psychiatric history details: catatonia Family psychiatric history: Unknown Family History of Suicide: Unknown - Social History Smoking Status: Unknown if ever smoked Medications & Allergies Buprenorphine HCl/Naloxone HCl [Suboxone 8 mg-2 mg Sl Film] 1 each SL BID 04/16/18 [History] Gabapentin [Neurontin] 600 mg PO TID 04/16/18 [History] Allergy/AdvReac Type Severity Reaction Status Date / Time Unable to Assess Allergy Verified 04/15/18 18:22 Review of Systems Constitutional: Denies: fever, chills, weakness, weight change Eyes: Denies: eye pain, vision change Ears, Nose, Throat: Denies: ear pain, throat pain, dental pain, hearing loss, congestion Cardiovascular: Denies: chest pain, palpitations, dyspnea on exertion Respiratory: Denies: cough, dyspnea, wheezes Gastrointestinal: Denies: abdominal pain, nausea, vomiting, diarrhea, constipation Genitourinary male: Denies: urgency, dysuria, frequency, genital lesions Musculoskeletal: Denies: joint swelling, joint pain Integumentary: Denies: rash, lesions, pruritus Neurological: Denies: headache, weakness, numbness, memory loss Psychiatric: Reports: difficulty concentrating, other (catatonic) Endocrine: Denies: fatigue, heat or cold intolerance Hematologic/Lymphatic: Denies: easy bruising, lymphadenopathy Allergic/Immunologic: Denies: urticaria, itchy eyes Psychiatry Exam - Constitutional Vitals: Temp Pulse Resp BP Pulse Ox 97.6 F 101 16 133/89 99 04/18/18 04:01 04/18/18 04:01 04/18/18 04:01 04/18/18 04:01 04/18/18 04:01 General appearance: age & developmentally appropriate, well-groomed, well- nourished - Musculoskeletal Gait: normal Station: relaxed Strength & Tone: normal for patient - Psychiatric Patient Orientation: No Person, No Time, No Place, No Circumstance Level of alertness: Does not respond to painful stimuli Behavior: uncooperative, withdrawn Psychomotor activity: Catatonic Eye Contact: Minimal Contact Mood Description: Other (catatonic ) Affect description: flat Speech Volume: No speech Speech pattern: non-verbal Language & Vocabulary: aphasia Thought Process: Disorganized Thought Content: Yes Poverty of Content Perceptual Disturbances: Yes Depersonalization Attention Span Ability: Unable to Sustain Attention Memory Description: Immediate Impaired, Remote Impaired Patient Reliability: Not Reliable Historian Fund of knowledge: Yes below average Intelligence Estimate: Average Judgment: Poor Insight: None Results - Labs Labs: Laboratory Last Values WBC 7.0 K/mcL (4.3-11.1) 04/15/18 17:21 RBC 4.45 M/mcL (4.19-5.50) 04/15/18 17:21 Hgb 13.3 g/dL (12.9-16.9) 04/15/18 17:21 Hct 37.9 % (37.5-50.1) 04/15/18 17:21 MCV 85.2 fL (83.0-100.0) 04/15/18 17:21 MCH 29.9 pg (28.0-33.3) 04/15/18 17:21 MCHC 35.1 g/dL (31.6-35.5) 04/15/18 17:21 RDW 12.3 % (11.5-14.5) 04/15/18 17:21 Plt Count 277 K/mcL (140-400) 04/15/18 17:21 MPV 9.0 fL (9.4-12.4) L 04/15/18 17:21 Immature Gran % 0.1 % (0-4) 04/15/18 17:21 Seg Neutrophils % 59.4 % 04/15/18 17:21 Lymphocytes % 24.3 % 04/15/18 17:21 Monocytes % 7.4 % 04/15/18 17:21 Eosinophils % 8.1 % 04/15/18 17:21 Basophils % 0.7 % 04/15/18 17:21 Neutrophils # 4.2 K/mcL (1.6-8.9) 04/15/18 17:21 Lymphocytes # 1.7 K/mcL (0.6-4.6) 04/15/18 17:21 Monocytes # 0.5 K/mcL (0.0-1.3) 04/15/18 17:21 Eosinophils # 0.6 K/mcL (0.0-0.6) 04/15/18 17:21 Basophils # 0.1 K/mcL (0.0-0.2) 04/15/18 17:21 Sodium 138 mEq/L (136-145) 04/15/18 17:21 Potassium 3.6 mEq/L (3.5-5.1) 04/15/18 17:21 Chloride 104 mEq/L (98-107) 04/15/18 17:21 Carbon Dioxide 27 mEq/L (23-29) 04/15/18 17:21 BUN 8 mg/dL (6-20) 04/15/18 17:21 Creatinine 0.99 mg/dL (0.70-1.30) 04/15/18 17:21 Est GFR ( Amer) > 60 (> 60) 04/15/18 17:21 Est GFR (Non-Af Amer) > 60 (> 60) 04/15/18 17:21 BUN/Creatinine Ratio 8 (6-26) 04/15/18 17:21 Glucose 112 mg/dL (70-105) H 04/15/18 17:21 Calculated Osmolality 285 (280-300) 04/15/18 17:21 Calcium 9.3 mg/dL (8.6-10.3) 04/15/18 17:21 Total Bilirubin 0.4 mg/dL (0.3-1.0) 04/15/18 17:21 Direct Bilirubin 0.1 mg/dL (0.0-0.2) 04/15/18 17:21 Indirect Bilirubin 0.3 mg/dL (0.0-1.2) 04/15/18 17:21 AST 30 Units/L (13-39) 04/15/18 17:21 ALT 51 Units/L (7-52) 04/15/18 17:21 Alkaline Phosphatase 83 Units/L (34-104) 04/15/18 17:21 Serum Total Protein 7.2 g/dL (6.4-8.9) 04/15/18 17:21 Albumin 4.5 g/dL (3.5-5.7) 04/15/18 17:21 Globulin 2.7 g/dL (2.4-3.5) 04/15/18 17:21 Albumin/Globulin Ratio 1.7 (1.1-2.2) 04/15/18 17:21 TSH 0.553 mcIU/mL (0.340-5.600) 04/15/18 17:21 Urine Color Yellow (Yellow) 04/15/18 18:16 Urine Clarity Cloudy (Clear) A 04/15/18 18:16 Urine pH 6.5 pH Units (5.0-8.0) 04/15/18 18:16 Ur Specific [place] > 1.030 (1.010-1.025) H 04/15/18 18:16 Urine Protein Negative mg/dL (Neg-Trace) 04/15/18 18:16 Urine Glucose (UA) Normal mg/dL (Normal) 04/15/18 18:16 Urine Ketones Trace mg/dL (Negative) H 18 18:16 Urine Blood Moderate (Negative) H 04/15/18 18:16 Urine Nitrite Negative (Negative) 04/15/18 18:16 Urine Bilirubin Negative (Negative) 04/15/18 18:16 Urine Urobilinogen Normal mg/dL (Normal) 04/15/18 18:16 Ur Leukocyte Esterase Small (Negative) H 04/15/18 18:16 Urine Microscopic RBC 5-15 per hpf (0-3) H 04/15/18 18:16 Urine Microscopic WBC 50-100 per hpf (0-3) H 04/15/18 18:16 Ur Squamous Epith Cells Many per lpf (None-Few) H 04/15/18 18:16 Urine Bacteria None Seen per hpf (None-Few) 04/15/18 18:16 Salicylates < 2.5 mg/dL (15.0-30.0) L 04/15/18 17:21 Urine Opiates Screen Negative ng/mL (Tjafbv=223) 04/15/18 18:16 Acetaminophen < 10 mcg/mL (10-20) L 04/15/18 17:21 Ur Barbiturates Screen Negative ng/mL (Jpnumd=863) 04/15/18 18:16 Ur Phencyclidine Scrn Negative ng/mL (Cutoff=25) 04/15/18 18:16 Ur Amphetamines Screen Positive ng/mL (Uxygbo=5180) H 04/15/18 18:16 U Benzodiazepines Scrn Negative ng/mL (Hheixo=810) 04/15/18 18:16 Urine Cocaine Screen Negative ng/mL (Cutoff= 300) 04/15/18 18:16 U Marijuana (THC) Screen Negative ng/mL (Cutoff = 50) 04/15/18 18:16 Ur Drug Screen Interp See Below 04/15/18 18:16 Ethyl Alcohol < 10 mg/dL (Less than 10) 04/15/18 17:21 Consult Discharge Plan - Plan Additional Instructions: consider in hospitalizton for stabilization of catatoina and methamphetamine use D/O Referrals: NONE,PCP [Primary Care Provider] -
[2018-04-18] MEDS: *HR* LORazepam 2 MG/ML VIAL IM SCH ×2 (15:45→20:04)
[2018-04-19] MEDS: *HR* Heparin 5,000 UNIT/ML VIAL SQ SCH ×2 (05:58→20:21)
[2018-04-19] MEDS: *HR* LORazepam 2 MG/ML VIAL IM SCH ×3 (07:53→20:32)
[2018-04-19] MEDS: (Buprenorphine Hcl/Naloxone Hcl [Suboxone 8 Mg-2 Mg S SL SCH ×2 (08:03→20:35)
[2018-04-19] MEDS: Gabapentin 300 MG CAPSULE PO SCH ×3 (08:03→20:35)
--- NOTE | 2018-04-19 14:32 | Consult Note ---
Date of Encounter: 04/19/18 Time of Encounter: 13:30 Assessment & Recommendation (1) Catatonia Current visit: Yes Status: Acute (2) Acute psychosis Current visit: Yes Status: Acute (3) Methamphetamine substance use disorder, mild, in sustained remission, in controlled environment, abuse Current visit: Yes Status: Acute (4) Substance-induced psychotic disorder Current visit: Yes Status: Acute History of Present Illness Requesting Physician: Bijan Hartman MD Reason for consult: catatoina History of present illness: Mr. Cortes is a 32 year old,, male, who presents for Catatonia. Pt was brought in by EMS after he was found staring vacantly at a store. Since being admitted he has not cooperated with any assessments. Pt presented with waxy catatonia. pt still does not respond to pain and has not otherwise answered questions or engaged with staff. On eval today he is laying in bed with his eyes open. Pt did not respond to questions Question if pt is deliberately not engaging. Pt has had a few documented out bursts of yelling nonsense and praying loudly just before this press writer came up. Tox screen positive for meth. Mental health history is unknown. No real information on client at this time. No TD noted, AIMS=0 1.Interval hx 2.Continue current medications 3.Review current labs 4.Pt had an opportunity to ask questions and discuss current treatment plan. 5.Supportive therapy was provided 6.Pt encouraged to consider group or individual therapy 7.Pt was in agreement with treatment plan. 8.Pt was educated on the risks benefits and side effects of current medications. 9.Start Ativan 2 mg IM TID for catationia. 10. Pt to not have access to cell phone due to excaerbation of mental illness 11. Consider Treatment of UTI. 12. Cooridnate with social work for hx and family dynamics CC: Bijan Hartman MD Past Med Surg Social Fam HX - Past Medical History Medical history: other - Past Psychiatric History Psychiatric history: Reports: other Family psychiatric history: Unknown Family History of Suicide: Unknown (unknown) - Social History Smoking Status: Unknown if ever smoked Medications & Allergies Buprenorphine HCl/Naloxone HCl [Suboxone 8 mg-2 mg Sl Film] 1 each SL BID 04/16/18 [History] Gabapentin [Neurontin] 600 mg PO TID 04/16/18 [History] Allergy/AdvReac Type Severity Reaction Status Date / Time Unable to Assess Allergy Verified 04/15/18 18:22 Review of Systems Constitutional: Denies: fever, chills, weakness, weight change Eyes: Denies: eye pain, vision change Ears, Nose, Throat: Denies: ear pain, throat pain, dental pain, hearing loss, congestion Cardiovascular: Denies: chest pain, palpitations, dyspnea on exertion Respiratory: Denies: cough, dyspnea, wheezes Gastrointestinal: Denies: abdominal pain, nausea, vomiting, diarrhea, constipation Genitourinary male: Reports: urgency, frequency. Denies: dysuria, genital lesions Musculoskeletal: Denies: joint swelling, joint pain Integumentary: Denies: rash, lesions, pruritus Neurological: Denies: headache, weakness, numbness, memory loss Psychiatric: Reports: difficulty concentrating, other (catatonic) Endocrine: Denies: fatigue, heat or cold intolerance Hematologic/Lymphatic: Denies: easy bruising, lymphadenopathy Allergic/Immunologic: Denies: urticaria, itchy eyes Psychiatry Exam - Constitutional Vitals: Temp Pulse Resp BP Pulse Ox 97.4 F L 88 16 110/79 100 04/19/18 07:28 04/19/18 07:28 04/19/18 07:28 04/19/18 07:28 04/19/18 07:54 General appearance: age & developmentally appropriate, well-groomed, well- nourished - Musculoskeletal Gait: normal Station: relaxed Strength & Tone: normal for patient - Psychiatric Patient Orientation: Yes Person, Yes Time, Yes Place Level of alertness: Alert Behavior: calm, cooperative Psychomotor activity: Catatonic Eye Contact: Avoids Eye Contact Mood Description: Other (catatonic) Affect description: flat Speech Volume: Normal Speech pattern: non-verbal Language & Vocabulary: consistent with education Thought Process: Linear, Disorganized Thought Content: Yes Homicidal ideation, Yes Poverty of Content Perceptual Disturbances: No Auditory hallucinations, No Visual hallucinations Attention Span Ability: Unable to Sustain Attention Memory Description: Immediate Impaired, Remote Impaired Patient Reliability: Reliable Historian Fund of knowledge: Yes abstraction ability, Yes aware of current events Intelligence Estimate: Average Judgment: Poor Insight: Minimal Results - Labs Labs: Laboratory Last Values WBC 7.0 K/mcL (4.3-11.1) 04/15/18 17:21 RBC 4.45 M/mcL (4.19-5.50) 04/15/18 17:21 Hgb 13.3 g/dL (12.9-16.9) 04/15/18 17:21 Hct 37.9 % (37.5-50.1) 04/15/18 17:21 MCV 85.2 fL (83.0-100.0) 04/15/18 17:21 MCH 29.9 pg (28.0-33.3) 04/15/18 17:21 MCHC 35.1 g/dL (31.6-35.5) 04/15/18 17:21 RDW 12.3 % (11.5-14.5) 04/15/18 17:21 Plt Count 277 K/mcL (140-400) 04/15/18 17:21 MPV 9.0 fL (9.4-12.4) L 04/15/18 17:21 Immature Gran % 0.1 % (0-4) 04/15/18 17:21 Seg Neutrophils % 59.4 % 04/15/18 17:21 Lymphocytes % 24.3 % 04/15/18 17:21 Monocytes % 7.4 % 04/15/18 17:21 Eosinophils % 8.1 % 04/15/18 17:21 Basophils % 0.7 % 04/15/18 17:21 Neutrophils # 4.2 K/mcL (1.6-8.9) 04/15/18 17:21 Lymphocytes # 1.7 K/mcL (0.6-4.6) 04/15/18 17:21 Monocytes # 0.5 K/mcL (0.0-1.3) 04/15/18 17:21 Eosinophils # 0.6 K/mcL (0.0-0.6) 04/15/18 17:21 Basophils # 0.1 K/mcL (0.0-0.2) 04/15/18 17:21 Sodium 138 mEq/L (136-145) 04/15/18 17:21 Potassium 3.6 mEq/L (3.5-5.1) 04/15/18 17:21 Chloride 104 mEq/L (98-107) 04/15/18 17:21 Carbon Dioxide 27 mEq/L (23-29) 04/15/18 17:21 BUN 8 mg/dL (6-20) 04/15/18 17:21 Creatinine 0.99 mg/dL (0.70-1.30) 04/15/18 17:21 Est GFR ( Amer) > 60 (> 60) 04/15/18 17:21 Est GFR (Non-Af Amer) > 60 (> 60) 04/15/18 17:21 BUN/Creatinine Ratio 8 (6-26) 04/15/18 17:21 Glucose 112 mg/dL (70-105) H 04/15/18 17:21 Calculated Osmolality 285 (280-300) 04/15/18 17:21 Calcium 9.3 mg/dL (8.6-10.3) 04/15/18 17:21 Total Bilirubin 0.4 mg/dL (0.3-1.0) 04/15/18 17:21 Direct Bilirubin 0.1 mg/dL (0.0-0.2) 04/15/18 17:21 Indirect Bilirubin 0.3 mg/dL (0.0-1.2) 04/15/18 17:21 AST 30 Units/L (13-39) 04/15/18 17:21 ALT 51 Units/L (7-52) 04/15/18 17:21 Alkaline Phosphatase 83 Units/L (34-104) 04/15/18 17:21 Serum Total Protein 7.2 g/dL (6.4-8.9) 04/15/18 17:21 Albumin 4.5 g/dL (3.5-5.7) 04/15/18 17:21 Globulin 2.7 g/dL (2.4-3.5) 04/15/18 17:21 Albumin/Globulin Ratio 1.7 (1.1-2.2) 04/15/18 17:21 TSH 0.553 mcIU/mL (0.340-5.600) 04/15/18 17:21 Urine Color Yellow (Yellow) 04/15/18 18:16 Urine Clarity Cloudy (Clear) A 04/15/18 18:16 Urine pH 6.5 pH Units (5.0-8.0) 04/15/18 18:16 Ur Specific [place] > 1.030 (1.010-1.025) H 04/15/18 18:16 Urine Protein Negative mg/dL (Neg-Trace) 04/15/18 18:16 Urine Glucose (UA) Normal mg/dL (Normal) 04/15/18 18:16 Urine Ketones Trace mg/dL (Negative) H 04/15/18 18:16 Urine Blood Moderate (Negative) H 04/15/18 18:16 Urine Nitrite Negative (Negative) 04/15/18 18:16 Urine Bilirubin Negative (Negative) 04/15/18 18:16 Urine Urobilinogen Normal mg/dL (Normal) 04/15/18 18:16 Ur Leukocyte Esterase Small (Negative) H 04/15/18 18:16 Urine Microscopic RBC 5-15 per hpf (0-3) H 04/15/18 18:16 Urine Microscopic WBC 50-100 per hpf (0-3) H 04/15/18 18:16 Ur Squamous Epith Cells Many per lpf (None-Few) H 04/15/18 18:16 Urine Bacteria None Seen per hpf (None-Few) 04/15/18 18:16 Salicylates < 2.5 mg/dL (15.0-30.0) L 04/15/18 17:21 Urine Opiates Screen Negative ng/mL (Aqnvex=767) 04/15/18 18:16 Acetaminophen < 10 mcg/mL (10-20) L 04/15/18 17:21 Ur Barbiturates Screen Negative ng/mL (Sdqnzb=530) 04/15/18 18:16 Ur Phencyclidine Scrn Negative ng/mL (Cutoff=25) 04/15/18 18:16 Ur Amphetamines Screen Positive ng/mL (Nlwhes=4914) H 04/15/18 18:16 U Benzodiazepines Scrn Negative ng/mL (Vygsdn=549) 04/15/18 18:16 Urine Cocaine Screen Negative ng/mL (Cutoff= 300) 04/15/18 18:16 U Marijuana (THC) Screen Negative ng/mL (Cutoff = 50) 04/15/18 18:16 Ur Drug Screen Interp See Below 04/15/18 18:16 Ethyl Alcohol < 10 mg/dL (Less than 10) 04/15/18 17:21 Consult Discharge Plan - Plan Additional Instructions: [facility] for stabilization of catatoina and methamphetamine use D/O Referrals: NONE,PCP [Primary Care Provider] -
--- NOTE | 2018-04-19 16:05 | Internal Med Progress Note ---
Hospitalist Progress Note - Encounter Date of Encounter: 04/19/18 Time of Encounter: 09:45 - Subjective Interval History: Mr. Garcia is a 32-year-old male who was initially found in a convenience store with catatonia type signs and symptoms. He has remained nonverbal, to psychiatry or to provider's, however he does speak with nursing staff, who report that he is alert and oriented to place person time. He is continues to be under supervision, 24-hour watch Nursing staff reports that he has, been reluctant to take any medications that they had to call security this morning to get his IM injections he also has urinated on himself and his clothing been standing in the exam room chair in the room through his bedding at the [facility]. He has drink coffee today but has refused to eat any food. And he also has proceeded to place his finger down his throat to make himself gag and throw up. On review with patient at bedside patient is lying with the covers down around his ankles with feet out he has a positive knee-jerk with positive Babinski with stimulation to the sole of the foot, his demeanor is half closed eyes and he appears to be listing to the provider as she describes what the plan of care is for him which includes a discharge from medical floor and be sent in transfer to psychiatric unit of one day discharge and admission to a patient did open his eyes and look over at the provider. , Shortly after the interviewed at the beds court the patient did become more active in the room and acting out. CT of the head was completed and is normal. He was evaluated once again and her psychiatry Dr. Reyes he has increased his Ativan to 2 mg 3 times a day. There is a no response with this amount of medication Dr. Reyes is requesting that further evaluation be completed on a physiological level versus mental level. This patient is a candidate for one day once they will accept him - Exam Vitals: Temp Pulse Resp BP Pulse Ox 97.4 F L 88 16 110/79 100 04/19/18 07:28 04/19/18 07:28 04/19/18 07:28 04/19/18 07:28 04/19/18 07:54 Exam: Stable - Assessment and Plan (1) Acute psychosis Current Visit: Yes Status: Acute Assessment and Plan: Today he continues to be nonverbal with medical transcription radiology however he does speak with the nursing staff. He refuses all by mouth meds and must be restrained in order to get IM injections. He has been incontinent upon himself some of his linens and through them at the, as self-induced vomiting. He is ambulatory within his room but he does not venture into the hallway. We will continue with center and the follow-up with recommendations from psychiatry (2) Intoxication by drug Current Visit: Yes Status: Resolved Assessment and Plan: Was found to have amphetamines in the bloodstream upon his date of admission however he does not exhibit any withdrawal symptoms and amphetamine use should by this time have been excluded from his system. (3) Acute encephalopathy Current Visit: Yes Status: Acute Assessment and Plan: There is question of malingering for this patient's behavior, however with him being nonverbal it is difficult to assess his history we are attempting to contact family members to obtain history on this patient (4) DVT prophylaxis Current Visit: Yes Status: Acute - Time Spent with Patient Total time spent is greater than 50% in coordination of care (as documented) at patient's floor/unit and/or counseling patient: less than 15 minutes Plan of Care Discussed with: [employer] ax consultant Internal Medicine: Result - Labs CBC & Chem 7: 04/15/18 17:21 04/15/18 17:21 - Impressions Impressions Head CT 04/19/18 14:19 IMPRESSION: No acute intracranial abnormality. D/ / Bassam Paz / Bassam Paz Interpreting Provider: Bassam Paz - Diagnostic Studies CT scan - head Additional comments: No Acute intracranial abnormality or changes Consult Discharge Plan - Plan Additional Instructions: [facility] for stabilization of catatoina and methamphetamine use D/O Referrals: NONE,PCP [Primary Care Provider] - (2) Intoxication by drug Qualifiers: Complication of substance-induced condition: with unspecified complication Qualified Code(s): F19.929 - Other psychoactive substance use, unspecified with intoxication, unspecified
--- NOTE | 2018-04-19 16:39 | Event Note ---
Date of Encounter: 04/19/18 Time of Encounter: 16:32 Was notified that patient has broken up and was talking and requesting to see the provider. Patient is alert he is oriented to self, month and date, However he was confused about where he is at the present time. Nurse reports that Ativan 2 mg was given approx 90 minutes prior to patient becoming coherent. 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 He stated that he had not taken to many [id number] antihistamines, due to nasal stuffiness and congestion. Attempted to review medical history as well a psychiatric history with the patient, it was less than forthcoming regarding his psychiatric history he does allude that he was possibly diagnosed with bipolar disease when he was 14. He denies any history of schizophrenia, schizoaffective disorder, or depression. He was questioned by the nursing staff if he remembered getting the injection and he points to the left arm and states he meanness when up here, the nurse does confirm that that is where the injection was given. He does admit that he remembers getting the injection and it was approximately 90 minutes prior to his waking up. He is requesting food is he is hungry and something with caffeine such as a cold as he has a headache. On physical exam patient is alert awake oriented to month and year. 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 He avoids eye contact, was strongly encouraged by this provider to open his eyes as he wanted to talk with the eyes closed. He was cooperative and open his eyes and gave direct eye contact momentarily with the provider. During interview he, he appeared anxious, stating a paper towel and to a narrow column and then trying to throw it into the trash can. He is agreeable to have his family contacted and he wishes to see his 11-year-old son. Contact his listed contact cirrhosis his father and to request that they bring his son to be seen. I do not feel that this patient is a danger to staff or family members at this time. We will continue with his pink slip order for the event of the 72 hour hold patient was advised of the 72 hour parameter and is agreeable to stay. .
[2018-04-19] MEDS ORDERED: Nicotine 7 MG PATCH.TD24 TD SCH (21:00)
[2018-04-20 05:15] VITALS: BP 122/86
[2018-04-20] MEDS: *HR* Heparin 5,000 UNIT/ML VIAL SQ SCH ×2 (06:05→17:51)
--- NOTE | 2018-04-20 09:57 | Psychiatry Progress Note ---
Date of Encounter: 04/20/18 Time of Encounter: 09:15 Subjective Interval history: Mr. Cortes is a 32 year old,, male, who presents for Catatonia. Pt was brought in by EMS after he was found staring vacantly at a store. Since being admitted he has not cooperated with any assessments. Pt presented with waxy catatonia. pt still does not respond to pain and has not otherwise answered questions or engaged with staff. On eval today he is laying in bed with limited communication. Pt did not respond to questions Question if pt is deliberately not engaging. Pt has had a few documented a few recent occasions of coherent responses. Tox screen positive for meth. Mental health history is unknown. No real information on client at this time. No TD noted, AIMS=0 1.Interval hx 2.Continue current medications 3.Review current labs 4.Pt had an opportunity to ask questions and discuss current treatment plan. 5.Supportive therapy was provided 6.Pt encouraged to consider group or individual therapy 7.Pt was in agreement with treatment plan. 8.Pt was educated on the risks benefits and side effects of current medications. 9.Start Ativan 2 mg IM TID for catatonia. 10. Pt to not have access to cell phone due to exacerbation of mental illness 11. Consider Treatment of UTI. 12. Coordinate with social work for hx and family dynamics 13. start amantadine for exacerbation of catatonia Review of Systems Constitutional: Denies: fever, chills, weakness, weight change Eyes: Denies: eye pain, vision change Ears, Nose, Throat: Denies: ear pain, throat pain, dental pain, hearing loss, congestion Cardiovascular: Denies: chest pain, palpitations, dyspnea on exertion Respiratory: Denies: cough, dyspnea, wheezes Gastrointestinal: Denies: abdominal pain, nausea, vomiting, diarrhea, constipation Musculoskeletal: Denies: joint swelling, joint pain Neurological: Denies: headache, weakness, numbness, memory loss Psychiatric: Reports: difficulty concentrating, other (catatonic) Results - Vital Signs Vital Signs: Temp Pulse Resp BP Pulse Ox 97.9 F 79 16 122/86 96 04/19/18 19:48 04/19/18 19:48 04/19/18 19:48 04/19/18 19:48 04/19/18 19:48 - Impressions ITS Impressions Head CT 04/15/18 17:21 IMPRESSION: Limited exam due to motion. Multifocal low-density in the right hemisphere. Motion related artifact is favored over ischemic changes No acute abnormality otherwise D/ / Igor Vogt / Igor Vogt Interpreting Provider: Igor Vogt Head CT 04/19/18 14:19 IMPRESSION: No acute intracranial abnormality. D/ / Bassam Paz / Bassam Paz Interpreting Provider: Bassam Paz Assessment and Plan (1) Catatonia Current visit: Yes Status: Acute Plan: Continue hospitalization, Close observation, Suicide Precautions per unit protocol, Encourage participation in unit milieu, Group Therapy, Monitor sleep, Monitor appetite (2) Acute psychosis Current visit: Yes Status: Acute Plan: Continue hospitalization, Close observation, Suicide Precautions per unit protocol, Encourage participation in unit milieu, Group Therapy, Monitor sleep, Monitor appetite (3) Methamphetamine substance use disorder, mild, in sustained remission, in controlled environment, abuse Current visit: Yes Status: Acute Plan: Continue hospitalization, Close observation, Suicide Precautions per unit protocol, Encourage participation in unit milieu, Group Therapy, Monitor sleep, Monitor appetite (4) Substance-induced psychotic disorder Current visit: Yes Status: Acute Plan: Continue hospitalization, Close observation, Suicide Precautions per unit protocol, Encourage participation in unit milieu, Group Therapy, Monitor sleep, Monitor appetite Consult Discharge Plan - Plan Additional Instructions: consider in hospitalizton for stabilization of catatoina and methamphetamine use D/O Referrals: NONE,PCP [Primary Care Provider] - Psychiatry Exam - Constitutional Vitals: Temp Pulse Resp BP Pulse Ox 97.9 F 79 16 122/86 96 04/19/18 19:48 04/19/18 19:48 04/19/18 19:48 04/19/18 19:48 04/19/18 19:48 General appearance: age & developmentally appropriate, well-groomed, well- nourished - Musculoskeletal Gait: normal Station: relaxed Strength & Tone: normal for patient - Psychiatric Patient Orientation: Yes Other (catatonic) Level of alertness: Alert Behavior: calm, uncooperative, guarded Psychomotor activity: Slowed Eye Contact: Minimal Contact Mood Description: Other (catatonic) Affect description: flat Speech Volume: No speech Speech pattern: non-verbal Language & Vocabulary: aphasia Thought Process: Disorganized, Slowed Thinking Thought Content: No Suicidal ideation, No Homicidal ideation, No Overt delusions Perceptual Disturbances: No Auditory hallucinations, No Visual hallucinations Attention Span Ability: Capable of Focused Attention Memory Description: Grossly Intact Patient Reliability: Reliable Historian Fund of knowledge: Yes abstraction ability, Yes aware of current events Intelligence Estimate: Average Judgment: Limited Insight: Partial
[2018-04-20] MEDS: Gabapentin 300 MG CAPSULE PO SCH ×2 (10:00→15:53)
[2018-04-20] MEDS: *HR* LORazepam 2 MG/ML VIAL IM SCH ×2 (10:08→15:52)
[2018-04-20] MEDS: (Buprenorphine Hcl/Naloxone Hcl [Suboxone 8 Mg-2 Mg S SL SCH (10:14)
--- NOTE | 2018-04-20 15:53 | Discharge Summary ---
- NOTES TO OUTPATIENT PROVIDER Notes to Outpatient Provider: no pending studies at time of d/c. D/C to inpatient psych Date of Encounter: 04/20/18 Time of Encounter: 15:52 - Discharge Diagnosis (1) Acute psychosis Priority: Primary Status: Acute (2) Intoxication by drug Priority: Secondary Status: Resolved Qualifiers: Complication of substance-induced condition: with unspecified complication Qualified Code(s): F19.929 - Other psychoactive substance use, unspecified with intoxication, unspecified (3) Acute encephalopathy Priority: Secondary Status: Acute (4) DVT prophylaxis Priority: Secondary Status: Acute Hospital course: Mr. Cortes is a 32 year old male with an unknown PMH who was brought in via EMS after being found at a convenience store staring vacantly. UDS positive for methamphetamines. It is unclear whether or not the patient has any past psychiatric history. Throughout the stay he has been uncooperative and displaying waxy catatonia. Psychiatry has been seeing in consultation and recommended inpatient psychiatric evaluation. For the most part of his stay he has been nonverbal and nonresponsive to either verbal or painful stimuli. He was started on benzodiazepine trial and this morning I was able to have a 10 minute conversation which the patient revealed he has had a prior inpatient psychiatric hospitalization in [facility] however, he did not reveal the name of facility and refused to talk thereafter. Multiple tendons of the made to contact family to discuss patient's condition and assess her prior psychiatric history however we have been unable to make contact at this time. Given his ongoing waxy catatonia patient is being discharged to inpatient psych for further monitoring and evaluation. Discharge discussed with: patient, nurse - Time Spent with Patient Total time spent providing and/or coordinating discharge services: Less than 30 minutes - Discharge Medications Home Medications: Buprenorphine HCl/Naloxone HCl [Suboxone 8 mg-2 mg Sl Film] 1 each SL BID 04/16/18 [History] Gabapentin [Neurontin] 600 mg PO TID 04/16/18 [History] Allergies/Adverse Reactions: Allergy/AdvReac Type Severity Reaction Status Date / Time Unable to Assess Allergy Verified 04/15/18 18:22 Date of admission: 04/16/18 14:59 Primary care physician: PCP NONE Consults: 04/15/18 20:32 Consult to Psychiatry [CONS] Routine Consulting Provider: Psychiat[facility] Reason consult: Altered mental status 04/20/18 09:05 Consult to Complaint Specialist [CONS] Routine Reason for SW Consult: d/c planning Discharging clinician: Adrian Burroughs Anticipated date of discharge: 04/20/18 - Constitutional Vitals: Temp Pulse Resp BP Pulse Ox 97.9 F 79 16 122/86 96 04/19/18 19:48 04/19/18 19:48 04/19/18 19:48 04/19/18 19:48 04/19/18 19:48 General appearance: Present: A&O X 1 (to self) Exam: PHYSICAL EXAMINATION: GENERAL: Catatonic appearing, uncooperative, alert HEENT: Head is normocephalic and atraumatic. EOMI, PERRLA NECK: Supple. No carotid bruits. No lymphadenopathy or thyromegaly. LUNGS: Clear to auscultation B/L AP and L. HEART: Regular rate and rhythm, S1, S2 without murmur. ABDOMEN: Soft, nontender, and nondistended. Positive bowel sounds. No hepatosplenomegaly was noted. EXTREMITIES: Without any cyanosis, clubbing, rash, lesions or edema. NEUROLOGIC: Cranial nerves II through XII are grossly intact. PSYCHIATRIC: Catatonic denies SI/HI, alert and does not appear to be responding to internal stimuli, does not appear to have delusions. He is capable of [place] attention and intent but this does wax and wane. He does not appear to have memory or speech impairment and there is no psychomotor agitation or retardation SKIN: No ulceration or induration present. - Patient Status Disposition: Home, Self-Care Condition: Fair Overall status at discharge: patient is not back to baseline - Discharge Instructions Follow Up With: NONE,PCP [Primary Care Provider] - Additional Instructions: [facility] for stabilization of catatoina and methamphetamine use D/O - Diet and Activity Activity: other (Participate in inpatient psychiatric therapy) Diet: advance to your usual diet
== END 2018-04-20 18:17 | disposition home or self-care (01) | DRG 776 ==
LOC: 3BNU 17:10 → EMEROOARM 17:10 → 3BNU 20:58
PROVIDERS: ADMIT Internal Medicine; ATTEND Family Medicine